=== PATIENT | female | born 1965 ===

== ENCOUNTER 2017-05-04 08:04 | Outpatient (CLI) | payer BC ==
--- NOTE | 2017-05-04 08:33 | XRay Report ---
RIGHT HAND, 3 views: The bony architecture is intact. Bony alignment is normal. No soft tissue abnormalities are seen. The joint spaces appear preserved. IMPRESSION: Normal right hand.
--- NOTE | 2017-05-04 08:33 | XRay Report ---
RIGHT WRIST, 4 VIEWS: History: wrist pain, injury. Routine views demonstrate the carpal bones to be well mineralized with well preserved bony mineralization and interosseous joint spaces. The carpal and adjacent articular bones have normal contours. The surrounding soft tissues are unremarkable. IMPRESSION: Unremarkable right wrist.
== END 2017-05-04 08:05 | disposition home or self-care (01) ==
LOC: SPVIMAG 08:04
PROVIDERS: ATTEND Orthopaedic Surgery
DX: M25.531 Pain in right wrist (principal); M79.641 Pain in right hand